=== PATIENT | male | born 1985 | race Caucasian/White ===

== ENCOUNTER 2020-01-13 16:06 | Inpatient (IN) | payer OTHER ==
[~2020-01-13] VITALS: Ht 188 cm; Wt 87.5 kg
--- NOTE | 2020-01-13 16:25 | NUR ---
WEAKNESS X 7 DAYS, WORST TODAY; SEEN BY URGENT CARE-EKG DONE, DC HOME WITH RX - XANAX. PATIENT A/OX4, BREATHING EVEN AND UNLABORED, NO SOB NOTED, NEEDS ATTENDED. ATTACHED TO THE BALANCE TRUING INSPECTOR.
[2020-01-13] MEDS ORDERED: IV NS 0.9% 1,000 ML BAG IV ONE (17:00)
[2020-01-13 17:11] LABS: BASOPHILS % (AUTO) 0.5 % (0.0-2.0); EOSINOPHILS % (AUTO) 0.2 % (0.0-6.0); HEMATOCRIT 49 % (39-51); HEMOGLOBIN 16.9 g/dL (13.5-17.5); LYMPHOCYTES # (AUTO) 1.8 /CMM (0.8-4.8); LYMPHOCYTES % (AUTO) 18.5 % (20.0-44.0); MEAN CORPUSCULAR HGB CONC 35 g/dl (31.0-36.0); MEAN CORPUSCULAR VOLUME 94 fL (80-96); MONOCYTES # (AUTO) 0.7 /CMM (0.1-1.30); MONOCYTES % (AUTO) 6.8 % (2.0-12.0); NEUTROPHILS # (AUTO) 7.2 /CMM (1.8-8.9); PLATELET COUNT (AUTO) 247 /CMM (150-450); RED BLOOD CELL COUNT(AUTO) 5.16 MIL/uL (4.5-6.0); WHITE BLOOD COUNT (AUTO) 9.7 K/uL (4.3-11.0)
[2020-01-13 17:19] LABS: CALCIUM, SERUM 9.2 mg/dL (8.5-10.1); CARBON DIOXIDE 25 mmol/L (21-32); CHLORIDE 103 mmol/L (98-107); GLUCOSE 96 mg/dL (74-106); POTASSIUM 3.6 mmol/L (3.5-5.1); SODIUM SERUM 140 mmol/L (136-145); UREA NITROGEN, BLOOD 16 mg/dL (7-18)
[2020-01-13 17:32] LABS: MAGNESIUM 2.3 mg/dL (1.8-2.4)
[2020-01-13] MEDS ORDERED: ALPR0.255 PO (17:39)
[2020-01-13 18:11] LABS: THYROID STIMULATING HORMONE 2.572 uIU/mL (0.358-3.74)
--- NOTE | 2020-01-13 18:40 | NUR ---
PATIENT RESTING, NO DISTRESS NOTED. VITALS STABLE.
--- NOTE | 2020-01-13 18:48 | NUR ---
YEN OLIVAS FROM [facility], GAVE VERBAL AUTH FOR OBSERVATION PHONE# [phone] TO FAX [facility] TO #[phone]
[2020-01-13] MEDS ORDERED: MAG HYDROX/AL HYDROX/SIMETH 30 ML UDC PO PRN (19:00)
[2020-01-13] MEDS ORDERED: ACETAMINOPHEN 325 MG TABLET PO PRN (19:00)
[2020-01-13] MEDS ORDERED: ONDANSETRON HCL/PF 4 MG/2 ML VIAL IVP PRN (19:00)
[2020-01-13] MEDS ORDERED: HYDROCODONE/APAP 5/325MG 1 EACH TABLET PO PRN (19:00)
[2020-01-13] MEDS ORDERED: MAGNESIUM HYDROXIDE 30 ML UDC PO PRN (19:00)
--- NOTE | 2020-01-13 19:19 | NUR ---
REPORT GIVEN REGGIE. ALANIS
[2020-01-13] MEDS ORDERED: ZOLPIDEM TARTRATE 5 MG TABLET PO PRN (19:30)
[2020-01-13] MEDS ORDERED: LORAZEPAM 1 MG TABLET PO PRN (19:30)
--- NOTE | 2020-01-13 20:24 | NUR ---
REPORT GIVEN TO JOHN CHARGE NURSE
--- NOTE | 2020-01-13 20:30 | NUR ---
ASSISTANT PROFESSOR OF BIOLOGY NOTES PATIENT ARRIVED TO UNIT VIA GURNEY WITH ACLS PROTOCOL. PATIENT ALERT AND ORIENTED X 4. ON ROOM AIR WITH NO SIGNS OF RESPIRATORY DISTRESS, NO SOB NOTED AT THIS TIME AND WITH EVEN NON-LABORED BREATHING. PLACE PATIENT ON THERAPEUTIC CONSULTANT. PATIENT IV ACCESS INTACT AND PATENT ON RIGHT AC, 18 GAUGE. SKIN WARM, DRY TO TOUCH. PATIENT'S BELONGINGS AT BEDSIDE. PATIENT REFUSED TO CHECK INSIDE OF WALLET. PROVIDED COMFORT MEASURES, DENIES PAIN AND DISCOMFORT AT THIS TIME. SAFETY PRECAUTIONS IMPLEMENTED WITH BED LOCKED, BILATERAL SIDE RAILS UP, BED IN THE LOWEST POSITION AND CALL LIGHT WITHIN EASY REACH OF PATIENT. WILL CONTINUE TO MONITOR PATIENT.
[2020-01-13 22:00] VITALS: BP 144/83
[2020-01-14] VITALS: BP 150/90
[2020-01-14 04:00] VITALS: BP 130/87
--- NOTE | 2020-01-14 07:03 | NUR ---
SOAP TENDER NOTES PATIENT IN BED RESTING COMFORTABLY, EASILY AWAKEN BY NAME. ON ROOM AIR WITH NO RESPIRATORY DISTRESS AT THIS TIME, WITH NO SOB NOTED. ON ENAMEL BURNER, SINUS RHYTHM WITH BBB, 69. PATIENT SKIN WARM AND DRY TO TOUCH. IV ACCESS ON RIGHT AC 18 SALINE LOCK. DENIES PAIN AND DISCOMFORT. PROVIDED COMFORT MEASURES TO PATIENT. SAFETY PRECAUTIONS IN PLACE WITH BED LOCKED, BED IN THE LOWEST POSITION, BILATERAL SIDE RAILS UP, AND CALL LIGHT WITHIN EASY REACH OF PATIENT. WILL ENDORSE PLAN OF CARE TO UPCOMING DAYSHIFT NURSE.
--- NOTE | 2020-01-14 07:56 | NUR ---
ANALYTICAL SCIENTIST OPENING NOTE PATIENT IN BED RESTING COMFORTABLY. PATIENT IN NO ACUTE DISTRESS. NO SOB NOTED. PATIENT BREATHING IS EVEN AND UNLABORED. PATIENT ON CARDIAC MONITORING READING SINUS RHYTHM WITH BBB HR 69. SAFETY PRECAUTIONS IN PLACE. PATIENT BED IS LOCKED AND IN LOWEST POSITION. CALL LIGHT WITHIN REACH. WILL CONTINUE TO MONITOR.
[2020-01-14 08:00] VITALS: BP 113/90
[2020-01-14 08:53] LABS: BASOPHILS % (AUTO) 0.5 % (0.0-2.0); EOSINOPHILS % (AUTO) 0.4 % (0.0-6.0); HEMATOCRIT 48 % (39-51); HEMOGLOBIN 16.5 g/dL (13.5-17.5); LYMPHOCYTES # (AUTO) 2.1 /CMM (0.8-4.8); LYMPHOCYTES % (AUTO) 29.9 % (20.0-44.0); MEAN CORPUSCULAR HGB CONC 34 g/dl (31.0-36.0); MEAN CORPUSCULAR VOLUME 95 fL (80-96); MONOCYTES # (AUTO) 0.5 /CMM (0.1-1.30); MONOCYTES % (AUTO) 7.6 % (2.0-12.0); NEUTROPHILS # (AUTO) 4.3 /CMM (1.8-8.9); NEUTROPHILS % (AUTO) 61.6 % (43.0-81.0); PLATELET COUNT (AUTO) 237 /CMM (150-450); RED BLOOD CELL COUNT(AUTO) 5.09 MIL/uL (4.5-6.0)
[2020-01-14 09:40] LABS: ALBUMIN 4.1 g/dL (3.4-5.0); BILIRUBIN,TOTAL 1.5 mg/dL (0.2-1.0); CALCIUM, SERUM 9.1 mg/dL (8.5-10.1); CREATININE 1.1 mg/dL (0.6-1.3); MAGNESIUM 2.2 mg/dL (1.8-2.4); PHOSPHORUS 3.9 mg/dL (2.5-4.9); POTASSIUM 3.8 mmol/L (3.5-5.1); TOTAL PROTEIN, SERUM 7.3 g/dL (6.4-8.2)
[2020-01-14] MEDS: POTASSIUM CHLORIDE 20 MEQ TAB.PRT.SR PO SCH ×3 (10:17→12:33)
[2020-01-14 12:00] VITALS: BP 123/74
--- NOTE | 2020-01-14 14:45 | NUR ---
BARREL DEDENTING MACHINE OPERATOR NOTE PATIENT MEDICALLY CLEARED FOR DISCHARGE. PATIENT IN NO ACUTE DISTRESS. NO SOB NOTED. PATIENT BREATHING IS EVEN AND UNLABORED. PATIENT IS ALERT AND ORIENTED X4. PER CHARGE NURSE RAVEN ECHOCARDIOGRAM IS NEGATIVE. DC INSTRUCTIONS PROVIDED. PATIENT VERBALIZED UNDERSTANDING. PATIENT SKIN ASSESSED, NO NEW SKIN BREAKDOWN NOTED. PATIENT HAS BELONGINGS WITH HIM, SIGNED BELONGINGS LIST. PATIENT KEPT CLEAN, DRY AND COMFORTABLE THROUGHOUT SHIFT. NEEDS AND CONCERNS ADDRESSED. ID BAND REMOVED. IV REMOVED. PATIENT AMBULATORY WITH STEADY GAIT USING HIS OWN CAR GOING BACK HOME. MD AWARE OF DISCHARGE.
== END 2020-01-14 14:45 | disposition home or self-care (01) | DRG 310 ==
LOC: ER 16:09 → TELE 19:52
PROVIDERS: ADMIT Nurse Practitioner Acute Care; ATTEND Nurse Practitioner Acute Care
DX: I45.6 Pre-excitation syndrome (principal); Z79.899 Other long term (current) drug therapy; E87.6 Hypokalemia; F41.9 Anxiety disorder, unspecified
CPT/HCPCS: 36415; 71045-TC; 80048-TC; 80053-TC; 80061-TC; 82962-TC; 83735-TC; 84100-TC; 84439-TC; 84443-TC; 84484-TC; 85025-TC; 87081-TC; 93307-TC; G0378; J7030